=== PATIENT | female | born 1990 | race Caucasian/White ===

== ENCOUNTER 2018-11-15 14:07 | Outpatient (CLI) | payer BC, SELFPAY ==
[2018-11-15 17:57] LABS: TSH (W/Ref FT4) 0.43 uIU/mL (0.36-3.74)
== END 2018-11-15 14:27 ==
PROVIDERS: PCP Family Medicine; Visit Provider Nurse Practitioner Family
DX: E04.9 Nontoxic goiter, unspecified (principal)
CPT/HCPCS: 36415; 84443

== ENCOUNTER 2018-12-20 14:34 | Outpatient (CLI) | payer BC, SELFPAY ==
[2018-12-20 15:14] LABS: Abs Immature Grans 0.01 k/cumm (0.0-0.09); Absolute Basophil Count 0.02 k/cumm (0.0-0.2); Absolute Eosinophil Count 0.08 k/cumm (0.0-0.7); Absolute Lymphocyte Count 2.73 k/cumm (1.2-3.4); Absolute Monocyte Count 0.71 k/cumm (0.11-0.7); Absolute Neutrophil Count 4.93 k/cumm (1.2-6.7); Basophils % 0.2; Eosinophils % 0.9; HCT 39.5 % (36.0-46.0); HGB 13.4 g/dL (12.0-15.5); Immature Grans % 0.1; Lymphocytes % 32.2; Mean Corp. HGB Concentration 33.9 g/dL (32.0-36.0); Mean Corpuscular Hemoglobin 28.9 pg (27.0-33.0); Mean Corpuscular Volume 85.3 fL (80-95); Monocytes % 8.4; Neutrophils % 58.2; Platelet Count 280 x1000/uL (130-400); RBC 4.63 m/cumm (4.00-5.20); RBC Distribution Width 13.1 % (11.7-14.6); White Blood Cell Count 8.48 k/cumm (4.4-10.8)
[2018-12-20 15:22] LABS: *AMPHETAMINES SCREEN URINE Negative (Negative); *BARBITURATES SCREEN URINE Negative (Negative); *BENZODIAZEPINES SCREEN URINE Negative (Negative); Cannabinoids THC Negative (Negative); Cocaine Screen,Urine Negative (Negative); METHADONE URINE SCREEN Negative (Negative); OPIATES URINE SCREEN Negative (Negative)
[2018-12-20 15:36] LABS: Tricyclic Antidepressants Negative (Negative)
[2018-12-21 11:22] LABS: Varicella IgG Antibody Positive
[2018-12-21 11:27] LABS: Hepatitis B Surface Ag Negative (NEGAT); Hepatitis C Ab w Rflx HCV PCR Negative (NEGAT)
[2018-12-21 11:33] LABS: Rubella IgG Ab (UVM) Positive
[2018-12-21 14:03] LABS: HIV-1/2 Ag & Ab Screen Negative (NEGAT)
[2018-12-21 16:23] LABS: Syphilis Total Ab w/Reflex Nonreactive (Nonreactive)
[2018-12-25 04:26] LABS: Buprenorphine Negative; Norbuprenorphine Negative
== END 2018-12-20 14:54 ==
PROVIDERS: PCP Family Medicine; Visit Provider Advanced Practice Midwife
DX: Z34.91 Encounter for supervision of normal pregnancy, unspecified, first trimester (principal); Z11.4 Encounter for screening for human immunodeficiency virus [HIV]; Z11.59 Encounter for screening for other viral diseases; Z01.84 Encounter for antibody response examination
CPT/HCPCS: 36415; 80307; 86787; 86803; 86850; 86900; 86901; 87340; 87389; 85025; 86762; 86780; 87086

== ENCOUNTER 2018-12-20 17:55 | Outpatient (REF) | payer BC, SELFPAY ==
--- NOTE | 2018-12-20 14:25 | PAPFT_PTH ---
PATIENT: Adeline Yee LOC: [facility] U#:[id number] AGE/SX: 28/F ROOM: RE12/20/[address]: Kristina Dixon CNM : 1990 BED: DIS: 12/20/2018 SPEC #: [id number] RECD: 12/20/18 18:08 STATUS: LEA REQ #: [id number] DALIA: 12/20/18 14:[address]: Kristina Dixon DEPT: [facility] Cytology RECD BY: Marisela Edwards ENTERED: 12/20/18 18:09 SP TYPE: PAPFT OTHR DR: Jorge Blackman Tissues: 1 - CX/ENDOCX FOR PAP SMEARS Procedures: PAP THIN PREP/[facility]VM Screening Comments: [id number]
[2018-12-22 14:33] LABS: Chlamydia Result Negative (Negative); GC Result Negative (Negative); Specimen Description CERVIX
== END 2018-12-20 18:15 ==
LOC: LBN 17:55
PROVIDERS: PCP Family Medicine; Visit Provider Advanced Practice Midwife
DX: Z34.91 Encounter for supervision of normal pregnancy, unspecified, first trimester (principal); Z11.3 Encounter for screening for infections with a predominantly sexual mode of transmission; Z12.4 Encounter for screening for malignant neoplasm of cervix
CPT/HCPCS: 87491; 87591; 88142

== ENCOUNTER 2019-02-09 08:28 | Outpatient (CLI) | payer BC, SELFPAY ==
[2019-02-09 09:07] LABS: Kit/Specimen SENT
[2019-02-15 09:23] LABS: Result Summary NEGATIVE; Specimen WB Whole Blood
== END 2019-02-09 08:48 ==
PROVIDERS: PCP Family Medicine; Visit Provider Advanced Practice Midwife
DX: Z34.92 Encounter for supervision of normal pregnancy, unspecified, second trimester (principal); Z36.89 Encounter for other specified antenatal screening
CPT/HCPCS: 36415; 81329; 81220

== ENCOUNTER 2019-02-16 00:37 | Outpatient (CLI) | payer BC, SELFPAY ==
--- NOTE | 2019-02-16 13:53 | DI.US_ITS ---
EXAM: US OB 2-3 TRIMESTER CLINICAL HISTORY: anatomy survey @ 18 wks, Z34.90 TECHNIQUE: Ultrasound performed using standard protocol. COMPARISON: No previous for comparison FINDINGS: There is a single living intrauterine gestation. Estimated sonographic age is 18 weeks 3 days. The fetus is in the cephalic presentation. heart rate is 153 beats per minute. No anato nick abnormalities are identified. The placenta is posterior without evidence of previa. The amniotic fluid appears within normal limits. IMPRESSION: Single living intrauterine gestation. Estimated sonographic age is 18 weeks 3 days.
== END 2019-02-16 00:57 ==
PROVIDERS: PCP Family Medicine; Visit Provider Advanced Practice Midwife
DX: Z34.92 Encounter for supervision of normal pregnancy, unspecified, second trimester (principal)
CPT/HCPCS: 76805

== ENCOUNTER 2019-02-21 07:55 | Outpatient (CLI) | payer BC, SELFPAY ==
[2019-02-22 14:50] LABS: AFP 86.1 ng/mL; Calculated age at EDD 27 years; Cigarette smoking status non-Smoker; GA used in risk estimate Scan estimate; IVF Pregnancy No; Initial or repeat testing Initial testing; Insulin dependent diabetes No; Maternal Weight 157 lbs; Number of Fetuses 1; Prev Pregnancy w/NTD No; RECOMMENDED FOLLOW UP None.; Results Summary Normal risk
[2019-02-24 18:34] LABS: Specimen WB Whole Blood
== END 2019-02-21 08:15 ==
PROVIDERS: Advanced Practice Midwife; PCP Family Medicine; Visit Provider Advanced Practice Midwife
DX: Z34.92 Encounter for supervision of normal pregnancy, unspecified, second trimester (principal); Z36.89 Encounter for other specified antenatal screening
CPT/HCPCS: 36415; 81329; 82105

== ENCOUNTER 2019-04-11 02:18 | Outpatient (CLI) | payer BC, SELFPAY ==
[2019-04-11 08:01] LABS: Glucose,1 Hr (Glucola) 82 mg/dL (80-140)
[2019-04-11 08:05] LABS: HCT 39.9 % (36.0-46.0); HGB 13.4 g/dL (12.0-15.5); Mean Corp. HGB Concentration 33.6 g/dL (32.0-36.0); Mean Corpuscular Hemoglobin 29.3 pg (27.0-33.0); Mean Corpuscular Volume 87.3 fL (80-95); Mean Platelet Volume 10.1 fL (8.0-11.0); Platelet Count 258 x1000/uL (130-400); RBC 4.57 m/cumm (4.00-5.20); RBC Distribution Width 13.1 % (11.7-14.6)
== END 2019-04-11 02:38 ==
PROVIDERS: PCP Family Medicine; Visit Provider Advanced Practice Midwife
DX: Z34.92 Encounter for supervision of normal pregnancy, unspecified, second trimester (principal); Z01.84 Encounter for antibody response examination
CPT/HCPCS: 36415; 82950; 85027; 86850

== ENCOUNTER 2019-04-25 09:29 | Outpatient (CLI) | payer BC, SELFPAY ==
[2019-04-25 09:54] LABS: HCT 39.7 % (36.0-46.0); HGB 13.5 g/dL (12.0-15.5); Mean Corpuscular Hemoglobin 29.4 pg (27.0-33.0); Mean Corpuscular Volume 86.5 fL (80-95); Mean Platelet Volume 10.1 fL (8.0-11.0); Platelet Count 248 x1000/uL (130-400); RBC 4.59 m/cumm (4.00-5.20); RBC Distribution Width 13.2 % (11.7-14.6)
== END 2019-04-25 09:49 ==
PROVIDERS: PCP Family Medicine; Visit Provider Advanced Practice Midwife
DX: Z34.93 Encounter for supervision of normal pregnancy, unspecified, third trimester (principal)
CPT/HCPCS: 36415; 85027; 86850; 90384

== ENCOUNTER 2019-06-21 12:39 | Outpatient (REF) | payer BC, SELFPAY ==
[2019-06-21 14:44] LABS: *AMPHETAMINES SCREEN URINE Negative (Negative); *BARBITURATES SCREEN URINE Negative (Negative); *BENZODIAZEPINES SCREEN URINE Negative (Negative); Cannabinoids THC Negative (Negative); Cocaine Screen,Urine Negative (Negative); METHADONE URINE SCREEN Negative (Negative); OPIATES URINE SCREEN Negative (Negative)
[2019-06-21 14:56] LABS: Tricyclic Antidepressants Negative (Negative)
[2019-06-26 15:40] LABS: Buprenorphine Negative; Norbuprenorphine Negative
== END 2019-06-21 12:59 ==
LOC: LBN 12:39
PROVIDERS: PCP Family Medicine; Visit Provider Advanced Practice Midwife
DX: Z34.93 Encounter for supervision of normal pregnancy, unspecified, third trimester (principal); Z36.85 Encounter for antenatal screening for Streptococcus B
CPT/HCPCS: 80307; 87081

== ENCOUNTER 2019-07-20 15:17 | Inpatient (IN) | payer BC, SELFPAY ==
[2019-07-20 14:53] LABS: ROM Plus Positive
[2019-07-20 16:01] LABS: HCT 42.4 % (36.0-46.0); HGB 14.7 g/dL (12.0-15.5); Mean Corp. HGB Concentration 34.7 g/dL (32.0-36.0); Mean Corpuscular Hemoglobin 29.3 pg (27.0-33.0); Mean Corpuscular Volume 84.5 fL (80-95); Mean Platelet Volume 10.5 fL (8.0-11.0); Platelet Count 229 x1000/uL (130-400); RBC 5.02 m/cumm (4.00-5.20); White Blood Cell Count 10.56 k/cumm (4.4-10.8)
[2019-07-20] MEDS: miSOPROStol 25 MCG TAB 50 MCG PO ×2 (16:45→20:46)
[2019-07-21] MEDS: Oxytocin 10 UNITS/ML VIAL IM (01:05)
[2019-07-21] MEDS: Acetaminophen 325 MG TAB 650 MG PO ×3 (02:00→17:36)
[2019-07-21] MEDS: Ibuprofen 600 MG TAB PO ×3 (02:01→17:35)
[2019-07-21] MEDS: Docusate Sodium 100 MG CAP PO (02:01)
[2019-07-21] MEDS: Hamamelis Leaf/Glycerin 100 EACH BOX PR (02:01)
[2019-07-21 09:21] LABS: COVID-19 RT-PCR UVMMC Result Negative (Negative)
[2019-07-22] MEDS: Ibuprofen 600 MG TAB PO (03:10)
[2019-07-22] MEDS: Acetaminophen 325 MG TAB 650 MG PO (03:10)
[2019-07-22 07:17] LABS: HCT 40.6 % (36.0-46.0); HGB 13.8 g/dL (12.0-15.5); Mean Corpuscular Hemoglobin 29.3 pg (27.0-33.0); Mean Corpuscular Volume 86.2 fL (80-95); Mean Platelet Volume 10.6 fL (8.0-11.0); Platelet Count 196 x1000/uL (130-400); RBC 4.71 m/cumm (4.00-5.20); RBC Distribution Width 13.4 % (11.7-14.6); White Blood Cell Count 11.62 k/cumm (4.4-10.8)
== END 2019-07-22 13:50 | disposition home or self-care (01) | DRG 807 ==
LOC: OBS 15:45
PROVIDERS: Admitting Provider Advanced Practice Midwife; PCP Family Medicine; Visit Provider Advanced Practice Midwife
DX: O42.12 Full-term premature rupture of membranes, onset of labor more than 24 hours following rupture (principal); Z37.0 Single live birth; O69.89X0 Labor and delivery complicated by other cord complications, not applicable or unspecified; Z3A.40 40 weeks gestation of pregnancy; O48.0 Post-term pregnancy; Z11.59 Encounter for screening for other viral diseases
CPT/HCPCS: 36415; 84112; 85027; 86850; 86900; 86901; U0003; 59025; 86870; J2590; J3490

== ENCOUNTER 2020-07-03 18:54 | Outpatient (REF) | payer BC, SELFPAY ==
[2020-07-03 15:44] LABS: Hemoglobin A1C 5.2 % (<5.7)
[2020-07-03 16:00] LABS: TSH (W/Ref FT4) 0.41 uIU/mL (0.36-3.74)
== END 2020-07-03 18:55 | disposition home or self-care (01) ==
LOC: NCHCN 18:54
PROVIDERS: PCP Family Medicine; Visit Provider Family Medicine
DX: Z00.00 Encounter for general adult medical examination without abnormal findings (principal); E04.2 Nontoxic multinodular goiter; Z13.1 Encounter for screening for diabetes mellitus; Z83.3 Family history of diabetes mellitus
CPT/HCPCS: 83036; 84443

== ENCOUNTER 2021-07-07 16:53 | Outpatient (REF) | payer BC, SELFPAY ==
[2021-07-07 14:29] LABS: TSH (W/Ref FT4) 0.76 uIU/mL (0.36-3.74)
== END 2021-07-07 16:54 | disposition home or self-care (01) ==
LOC: NCHCN 16:53
PROVIDERS: PCP Family Medicine; Visit Provider Family Medicine
DX: E04.2 Nontoxic multinodular goiter (principal)
CPT/HCPCS: 84443

== ENCOUNTER 2022-10-29 17:03 | Outpatient (REF) | payer MEDICAID, SELFPAY ==
--- NOTE | 2022-10-29 16:35 | PAPFT_PTH ---
PATIENT: Adeline Yee LOC: LOCATED WITHIN [facility]#:[id number] AGE/SX: 32/F ROOM: RE10/29/[address]: Jorge Blackman : 1990 BED: DIS: 10/29/2022 SPEC #: [id number] RECD: 10/29/22 18:15 STATUS: LEA REChetna #: [id number] DALIA: 10/29/22 16:[address]: Jorge Blackman DEPT: [facility] Cytology RECD BY: Marisela Edwards Tissues: 1 - CX/ENDOCX FOR PAP SMEARS Procedures: PAP THIN PREP/UVM Screening HPV DNA PROBE Comments: [id number]
[2022-10-29 19:15] LABS: Calculated LDL 102 mg/dL (<100); Cholesterol 182 mg/dL (<200); HDL Cholesterol 72 mg/dL (40-60); Triglyceride 44 mg/dL (<150)
== END 2022-10-29 17:04 | disposition home or self-care (01) ==
LOC: NCHCN 17:03
PROVIDERS: PCP Family Medicine; Visit Provider Family Medicine
DX: Z13.220 Encounter for screening for lipoid disorders (principal); Z12.4 Encounter for screening for malignant neoplasm of cervix; Z11.51 Encounter for screening for human papillomavirus (HPV); Z00.00 Encounter for general adult medical examination without abnormal findings
CPT/HCPCS: 80061; 88142; 87624

== ENCOUNTER 2023-04-19 07:45 | Emergency (ER) | payer MEDICAID, SELFPAY ==
[2023-04-19 07:55] VITALS: BP 100/71; PULSE 71; RESP 16; TEMP 37.2; O2SAT 100
--- NOTE | 2023-04-19 08:00 | DI.RAD_ITS ---
Exam(s) XR ANKLE RT COMPLETE EXAM: XR ANKLE RT COMPLETE CLINICAL HISTORY: Injury, pain. TECHNIQUE: 2D digital imaging was performed. Three views. COMPARISON: No exams were available for comparison FINDINGS: BONES: No acute fracture is present. No bony destructive lesion is seen. JOINTS: The ankle mortise is normally aligned. SOFT TISSUE: Normal. IMPRESSION: Unremarkable radiographs of the right ankle. DATA REPOSITORY: RADIATION DOSE DELIVERED:
--- NOTE | 2023-04-19 08:24 | W.ED.GENAD ---
HPI General Mode of arrival: ambulatory. Date/Time Provider Initiated Documentation: 04/19/23 08:04. Limitations to Documentation: no limitations. Information obtained by: patient, RN notes reviewed and old records reviewed. HPI Narrative: 32-year-old female presents to the ER with a chief complaint of right ankle pain after a inversion type injury yesterday while carrying her 65 pclny-nkfm-mbn child, she reports that she stepped off a step fell to the ground. She reports some twisting sensation in her right knee, no obvious deformity she does have some contusion noted to her lateral malleolus and swelling. Distal CMS is intact. Negative pain over the Achilles tendon or foot area. No tib-fib deformity or tenderness. She did ambulate here in department. She has been walking on it since then. Denies any other injuries. No head neck or back pain. She did take some ibuprofen last night none this morning. Related Data Home Medications Medication Instructions Recorded Confirmed epinephrine 0.3 mg/0.3 mL 0.3 mg IM ONCE 11/15/18 04/19/23 injection, auto-injector norethindrone 1 mg-ethinyl 1 tab PO DAILY #140 tabs 08/08/19 04/19/23 estradiol 10 mcg (24)-iron 10 mcg(2) tablet (Lo Loestrin Fe) Previous Rx's Medication Instructions Recorded norethindrone 1 mg-ethinyl 1 tab PO DAILY #140 tabs 08/08/19 estradiol 10 mcg (24)-iron 10 mcg(2) tablet (Lo Loestrin Fe) Allergies Allergy/AdvReac Type Severity Reaction Status Date / Time venom-honey bee AdvReac Severe Anaphylaxsi Verified 04/19/23 07:57 s General Stated Complaint: Orthopedic RADHA: 4 Review of Systems All systems reviewed & are unremarkable except as noted in HPI and below Musculoskeletal Musculoskeletal: Reports as per HPI, Reports abnormal gait, Reports arthralgias and Reports joint swelling Neurologic Neurologic: Reports abnormal gait Exam Extrem General: normal to inspection Right lower extremity: knee Details: normal to inspection, lower leg Details: normal to inspection; no tenderness, no crepitus and no deformity and ankle Details: tenderness, swelling, no edema and ecchymosis lateral Details: single; ROM normal Left lower extremity: normal to inspection Course Vital Signs Vital signs: Vital Signs Temperature 37.2 C 04/19/23 07:55 Pulse 71 04/19/23 07:55 Respiratory Rate 16 04/19/23 07:55 Blood Pressure 100/71 04/19/23 07:55 Pulse Oximetry 100 04/19/23 07:55 Temperature 37.2 C 04/19/23 07:55 Temperature Source Temporal Artery Scan 04/19/23 07:55 Pulse 71 04/19/23 07:55 Respiratory Rate 16 04/19/23 07:55 Respiratory Effort Normal, Non-Labored 04/19/23 07:58 Blood Pressure 100/71 04/19/23 07:55 Blood Pressure Position Sitting 04/19/23 07:55 Pulse Oximetry 100 04/19/23 07:55 Oxygen Delivery Method Room Air 04/19/23 07:55 Oxygen Flow Rate 0 04/19/23 07:55 Lab/Test Results Lab/Test Results: POC- Test(urine) Negative Medical Decision Making 32-year-old female presents to the ER with a chief complaint of right ankle pain after a inversion type injury yesterday while carrying her 65 bcokg-dlok-rjd child, she reports that she stepped off a step fell to the ground. She reports some twisting sensation in her right knee, no obvious deformity she does have some contusion noted to her lateral malleolus and swelling. Distal CMS is intact. Negative pain over the Achilles tendon or foot area. No tib-fib deformity or tenderness. She did ambulate here in department. She has been walking on it since then. Denies any other injuries. No head neck or back pain. She did take some ibuprofen last night none this morning. Three-view x-ray of ankle ordered. Urine negative. X-rays show no evidence of fracture or dislocation. Suspect moderate sprain. Will place patient in a lace up ankle stabilizer splint will instruct on RICE procedures and follow-up care if needed. This text was generated using [email or web address] system, please disregard any oddities of phrase or misspellings. This text was generated using [employer] system, please disregard any oddities of phrase or misspellings. Quality:SDOH Health Related Social Needs: No Data to Display PFSH All Active Problems (Updated 04/19/23 @ 09:00 by Viky Goodman NP) Right ankle sprain (Acute) Goiter diffuse (Acute) Rh negative state in antepartum period (Acute) Positive test (Acute) (Acute) Oral contraception initial prescription (Acute) Routine follow-up (Acute) Medical History (Updated 04/19/23 @ 09:00 by Viky Goodman NP) Constipation Pes planus Hyperhidrosis Multinodular goiter (nontoxic) Surgical History FNA thyroid Family History Father Multinodular goiter Grandfather Diabetes MGF Grandmother Lung cancer Mother Depression Social History (Updated 05/09/19 @ 10:23 by Yaneth Nunes MD) Smoking/Tobacco Use Status: Never Smoking risk assessment performed?: Yes Alcohol Intake: current Alcohol Intake frequency: a few times a month Drug use: Never Substance use type: does not use Household members: spouse, children and other Details: Keli-Forest, Ayesha-Servando. Number of Children: 1 Do you feel safe at home: Yes Do you feel safe in your relationship?: Yes History History 2 Para 2 Hx # Term Pregnancies 0 Multiple births 0 Hx # Pregnancies 0 Ectopic pregnancies 0 AB induced 0 Hx Number of Living Children 1 AB spontaneous 0 Past Pregnancies Del. Date GA/Weeks # Preg Succ Route Wgt Sex Labor Lgth Anesthesia Location [facility] 06/11/16 40 No vaginal 3798.836 g Male 16 hrs, pushed for 4 hrs [facility] [place] 07/21/19 No vaginal 3345.244 g Female 6 local [place] Delivery Date: 06/11/16 Last Updated by: Yaneth Nunes M.D. spont labor, 5 days after SCOTT, used nitrous only, no stitches [place] Delivery Date: 07/21/19 Last Updated by: Valerie Parikh CNM PROM, 2 doses of misoprostol and active labor PAWSS Have you Been Recently Intoxicated or Drunk Within the Last 30 days?: No Have you Ever Experienced Previous Episodes of Alcohol Withdrawal?: No Have you ever Experienced Withdrawal Seizures?: No Have you ever Experienced Delirium Tremens(DT)s?: No Have you ever undergone Alcohol Rehabilitation Treatment (i.e, inpt ot outpatient treatment programs)?: No Have you ever Experienced Blackouts?: No Have you ever Combined Alcohol with other Downers within the last 90 days?: No Have you ever Combined Alcohol with any other Substance of Abuse during the last 90 days?: No Positive Blood Alcohol level on Presentation? [PCS.BAL]: No Evidence of Increased Autonomic Activity (i.e. HR>120, tremor, sweating, agitation, nausea)?: No Result: 0 Discharge Plan Disposition Patient Disposition: Home Condition: Stable Discharge Details Clinical Impression: Right ankle sprain Primary Care Provider: Jorge Blackman ED Provider: Viky Goodman Home Meds and New Rx's Prescriptions: No Action epinephrine 0.3 mg/0.3 mL auto-injector 0.3 mg IM ONCE Patient Comments: Just received new one, only used in case of emergency Lo Loestrin Fe 1 mg-10 mcg (24)/10 mcg (2) tablet 1 tab PO DAILY Qty: 140 1RF Discharge Instructions Instructions: Ankle Sprain (ED) Additional Instructions: X-ray shows no evidence for broken bones or fracture. Rest ice compression elevation. Elevate when sitting or lying down. Ice for approximately 20 minutes up to 3 times daily. Wear the splint as needed for comfort. Weight bearing, advance as tolerated you may take the splint off discontinue use when feeling better. Please take Tylenol or Ibuprofen with food every 4-6 hours as needed for pain and swelling. Follow up with primary care provider if needed. Return to ED sooner if any worsening or concerns. Increase oral fluids. Referrals: Jorge Blackman [Primary Care Provider] - Return if symptoms worsen
== END 2023-04-19 09:23 | disposition home or self-care (01) ==
PROVIDERS: Emergency Provider Registered Nurse Emergency; PCP Family Medicine
DX: S93.401A Sprain of unspecified ligament of right ankle, initial encounter (principal); X50.1XXA Overexertion from prolonged static or awkward postures, initial encounter; Y93.01 Activity, walking, marching and hiking; Y92.89 Other specified places as the place of occurrence of the external cause
CPT/HCPCS: 81025; 99283; 73610

== ENCOUNTER 2023-07-12 16:14 | Outpatient (REF) | payer MEDICAID, SELFPAY ==
[2023-07-12 16:38] LABS: Abs Immature Grans 0.01 10^3/uL (0.0-0.06); Absolute Basophil Count 0.04 10^3/uL (0.0-0.2); Absolute Eosinophil Count 0.05 10^3/uL (0.0-0.7); Absolute Monocyte Count 0.47 10^3/uL (0.1-0.8); Absolute Neutrophil Count 3.02 10^3/uL (1.2-6.7); Basophils % 0.7 %; Eosinophils % 0.8 %; HCT 40.7 % (36.0-46.0); HGB 13.6 g/dL (11.2-15.7); Immature Grans % 0.2 %; Lymphocytes % 41.1 %; MCH 29.4 pg (27.0-33.0); MCHC 33.4 % (32.0-36.0); MCV 88 fL (80-95); MPV 10.5 fL (8.0-11.0); Monocytes % 7.7 %; Neutrophils % 49.5 %; Platelet Count 259 10^3/uL (130-400); RBC 4.63 10^6/uL (3.93-5.22); RDW-SD 41.5 fL; WBC 6.09 10^3/uL (4.4-10.8)
[2023-07-12 17:02] LABS: ALT 37 U/L (14-59); AST 27 U/L (15-37); Albumin 4.1 g/dL (3.4-5.0); Alkaline Phosphatase 41 U/L (46-116); Anion Gap 8.1 mmol/L (3-11); BUN 16 mg/dL (7-18); Bilirubin, Total 0.6 mg/dL (0.2-1.0); CO2 28.9 mmol/L (21.0-32.0); CREATININE 0.7 mg/dL (0.55-1.02); Calcium 9.4 mg/dL (8.5-10.1); Chloride 105 mmol/L (98-107); Estimated GFR 118.51 (mL/min/1.73m2); FREE T4 0.97 ng/dL (0.76-1.46); Glucose 86 mg/dL (74-106); Potassium 4.2 mmol/L (3.5-5.1); Sodium 142 mmol/L (136-145); TSH 0.35 uIU/Ml (0.36-3.74); Total Protein 6.8 g/dL (6.4-8.2)
[2023-07-13 17:51] LABS: FSH 4.4 mIU/mL (See Note)
== END 2023-07-12 16:15 | disposition home or self-care (01) ==
LOC: NCHCN 16:14
PROVIDERS: PCP Family Medicine; Visit Provider Student in an Organized Health Care Education/Training Program
DX: E04.1 Nontoxic single thyroid nodule (principal); R68.82 Decreased libido
CPT/HCPCS: 80053; 83001; 84439; 84443; 85025

== ENCOUNTER → 2023-07-13 02:35 | Outpatient (CLI) | payer MEDICAID, SELFPAY ==
--- NOTE | 2023-07-13 | DI.US_ITS ---
Exam(s) US THYROID EXAM: US THYROID CLINICAL HISTORY: THYROID NODULE E04.1 RT SIDE. TECHNIQUE: Ultrasound thyroid performed using standard protocol. COMPARISON: US US THYROID from 08/28/2020 FINDINGS: ISTHMUS: 2 mm RIGHT LOBE: Size: 5.2 x 1.5 x 2.2 cm Echogenicity: Normal. Vascularity: Normal. Nodules: There is a mixed cystic and solid isoechoic mass in the right lobe measuring 1.8 x 1.0 x 1.3 cm. Macro calcification is seen. It is consistent with a TI rads level 3 nodule. Due to its size, follow-up is recommended. Previously this lesion measured 1.7 x 1.0 x 1.4 cm. There is a 2nd lesio n more inferiorly located in the right lobe which measures 2.1 x 1.3 x 1.8 cm. It also is mixed cyst ic and solid characteristics and is isoechoic. There are punctate calcifications present. It is con sistent with a TI rads level 4 nodule. Due to its size, FNA is recommended. Previously this nodule measured 2.6 x 1.3 x 1.8 cm. LEFT LOBE: Size: 3.9 x 1.2 x 1.4 cm Echogenicity: Normal. Vascularity: Normal. Nodules: No nodules are seen that would warrant follow-up or biopsy. OTHER FINDINGS: None. IMPRESSION: Right thyroid nodules. The more inferior thyroid nodule is a category 4. Due to its size, FNA is re commended. DATA REPOSITORY:
== END ==
PROVIDERS: PCP Family Medicine; Visit Provider Student in an Organized Health Care Education/Training Program
DX: E04.1 Nontoxic single thyroid nodule (principal)
CPT/HCPCS: 76536

== ENCOUNTER 2024-06-01 02:35 | Outpatient (CLI) | payer MEDICAID, SELFPAY ==
[2024-06-01 10:11] LABS: Kit/Specimen SENT
[2024-06-01 10:13] LABS: Abs Immature Grans 0.01 10^3/uL (0.0-0.06); Absolute Basophil Count 0.05 10^3/uL (0.0-0.2); Absolute Eosinophil Count 0.11 10^3/uL (0.0-0.7); Absolute Lymphocyte Count 3.18 10^3/uL (1.2-3.4); Absolute Monocyte Count 0.59 10^3/uL (0.1-0.8); Absolute Neutrophil Count 3.26 10^3/uL (1.2-6.7); Basophils % 0.7 %; Eosinophils % 1.5 %; HCT 41.8 % (36.0-46.0); HGB 14.2 g/dL (11.2-15.7); Immature Grans % 0.1 %; Lymphocytes % 44.2 %; MCH 29.3 pg (27.0-33.0); MCV 86 fL (80-95); MPV 9.9 fL (8.0-11.0); Monocytes % 8.2 %; Neutrophils % 45.3 %; Platelet Count 231 10^3/uL (130-400); RBC 4.84 10^6/uL (3.93-5.22); RDW-SD 38.1 fL
[2024-06-01 10:16] LABS: Bilirubin Negative (Negative); Blood Negative (Negative); Clarity Clear (Clear); Glucose Negative (Negative); Ketones Negative (Negative); Leukocyte Esterase Negative (Negative); Nitrite Negative (Negative); Urobilinogen 0.2 mg/dL (Up to 0.2)
[2024-06-01 10:24] LABS: Hemoglobin A1C 5.2 % (<5.7)
[2024-06-01 11:00] LABS: Iron 100 ug/dL (50-170)
[2024-06-01 11:25] LABS: ALT 31 U/L (14-59); AST 24 U/L (15-37); Albumin 4.3 g/dL (3.4-5.0); Alkaline Phosphatase 49 U/L (46-116); Anion Gap 8.4 mmol/L (3-11); BUN 15 mg/dL (7-18); Bilirubin, Total 0.6 mg/dL (0.2-1.0); CO2 26.6 mmol/L (21.0-32.0); CREATININE 0.7 mg/dL (0.55-1.02); Calcium 9.5 mg/dL (8.5-10.1); Chloride 104 mmol/L (98-107); Cholesterol 179 mg/dL (<200); Estimated GFR 117.77 (mL/min/1.73m2); Ferritin 148 ng/mL (8-252); Glucose 76 mg/dL (74-106); HDL Cholesterol 83 mg/dL (>or=50); Potassium 4.1 mmol/L (3.5-5.1); Sodium 139 mmol/L (136-145); TSH 0.55 uIU/mL (0.36-3.74); Total Protein 7.3 g/dL (6.4-8.2); Vitamin B12 1259 pg/mL (193-986); Vitamin D 25 Total 35 ng/mL (30-100)
[2024-06-01 11:26] LABS: Folate > 20.0 ng/mL (8.6-20.0); Triglyceride <25 mg/dL (<150)
[2024-06-01 11:37] LABS: LDL CHOLESTEROL 90 mg/dL (<100)
[2024-06-01 11:55] LABS: FREE T4 1.22 ng/dL (0.76-1.46)
[2024-06-01 22:27] LABS: Prolactin 10.6 ng/mL (See Note); Thyroglobulin Antibody <15 U/mL (<=60); Thyroperoxidase Antibody <28 U/mL (<=60)
[2024-06-02 10:48] LABS: DHEA Sulfate 288 ug/dL (96-512)
[2024-06-02 11:31] LABS: Measles IgG Antibody Negative (See Note)
[2024-06-02 11:42] LABS: Mumps Antibody IgG Negative (See Note); Rubella IgG Ab (UVM) Positive (See Note)
[2024-06-08 14:25] LABS: Testosterone, Free 0.43 ng/dL (<0.13-1.03); Testosterone, Total 39 ng/dL (8-60)
== END 2024-06-01 02:36 | disposition home or self-care (01) ==
LOC: LBO 02:35
PROVIDERS: PCP Student in an Organized Health Care Education/Training Program; Visit Provider Naturopath
DX: R42 Dizziness and giddiness (principal); G44.219 Episodic tension-type headache, not intractable; F41.9 Anxiety disorder, unspecified
CPT/HCPCS: 36415; 80053; 80061; 82306; 82627; 83721; 84402; 84403; 86765; 81003; 82607; 82728; 82746; 83036; 83540; 84146; 84439; 84443; 84481; 85025; 86376; 86735; 86762; 86800

== ENCOUNTER 2024-06-14 13:05 | Outpatient (REF) | payer MEDICAID, SELFPAY ==
[2024-06-16 22:25] LABS: Iodine, 24 hr Urine 151 mcg/24 h (75 - 851); Urine Volume 1775 mL
[2024-06-21 00:05] LABS: Cortisol, Saliva 241 ng/dL
[2024-06-21 00:05] LABS: Cortisol, Saliva 277 ng/dL
== END 2024-06-14 13:06 | disposition home or self-care (01) ==
LOC: LBN 13:05
PROVIDERS: PCP Student in an Organized Health Care Education/Training Program; Visit Provider Naturopath
DX: E01.1 Iodine-deficiency related multinodular (endemic) goiter (principal); R68.82 Decreased libido; N94.4 Primary dysmenorrhea; N94.3 Premenstrual tension syndrome; R53.83 Other fatigue; G44.219 Episodic tension-type headache, not intractable; R59.0 Localized enlarged lymph nodes; R42 Dizziness and giddiness; E06.3 Autoimmune thyroiditis; D53.9 Nutritional anemia, unspecified; D50.9 Iron deficiency anemia, unspecified; R35.0 Frequency of micturition; E55.9 Vitamin D deficiency, unspecified; Z13.220 Encounter for screening for lipoid disorders; Z13.1 Encounter for screening for diabetes mellitus; M25.571 Pain in right ankle and joints of right foot
CPT/HCPCS: 81050; 82530; 83018

== ENCOUNTER 2024-08-10 03:30 | Outpatient (CLI) | payer MEDICAID, SELFPAY ==
[2024-08-10 16:38] LABS: TSH 6.98 uIU/mL (0.36-3.74)
== END 2024-08-10 03:31 | disposition home or self-care (01) ==
PROVIDERS: PCP Student in an Organized Health Care Education/Training Program
DX: E04.2 Nontoxic multinodular goiter (principal)
CPT/HCPCS: 36415; 84443

== ENCOUNTER 2024-09-19 10:19 | Outpatient (CLI) | payer MEDICAID, SELFPAY ==
[2024-09-19 10:53] LABS: TSH 0.59 uIU/mL (0.36-3.74)
== END 2024-09-19 10:20 | disposition home or self-care (01) ==
LOC: LBO 10:19
PROVIDERS: PCP Student in an Organized Health Care Education/Training Program; Visit Provider Nurse Practitioner Adult Health
DX: Z98.890 Other specified postprocedural states (principal); Z90.89 Acquired absence of other organs
CPT/HCPCS: 36415; 84443